=== PATIENT | female | born 1970 | race Caucasian/White ===

== ENCOUNTER 2022-02-16 11:33 | Outpatient (CLI) | payer OTHER, SELFPAY ==
--- NOTE | 2022-02-16 11:54 | XRR_ITS ---
PROCEDURE INFORMATION: Exam: XR Left Tibia and Fibula Exam date and time: 02/16/2022 11:58 AM Age: 52 years old Clinical indication: Pain; Lower leg; Left; Additional info: Pain in left patel TECHNIQUE: Imaging protocol: Radiologic exam of the Left tibia and fibula. Views: 2 views. COMPARISON: No relevant prior studies available. FINDINGS: Bones/joints: There is no evidence for acute fracture or malalignment. Soft tissues: Normal. XR/XR tibia fibula LT 2V [id number] IMPRESSION: No acute findings.
== END 2022-02-16 11:34 | disposition home or self-care (01) ==
LOC: RAD 11:39
PROVIDERS: PCP Family Medicine; Visit Provider Family Medicine
DX: M79.662 Pain in left lower leg (principal)
CPT/HCPCS: 73590

== ENCOUNTER 2022-06-11 09:17 | Emergency (ER) | payer OTHER, SELFPAY ==
[2022-06-11 09:40] VITALS: BP 151/88; PULSE 66; RESP 16; TEMP 36.7; O2SAT 96
--- NOTE | 2022-06-11 10:18 | XRR_ITS ---
PROCEDURE INFORMATION: Exam: XR Left Shoulder Exam date and time: 06/11/2022 10:33 AM Age: 52 years old Clinical indication: Injury or trauma; Blunt trauma (contusions or hematomas); Injury details: Fall, left arm/shoulder pain TECHNIQUE: Imaging protocol: Radiologic exam of the Left shoulder. Views: 2 or more views. COMPARISON: No relevant prior studies available. FINDINGS: Bones/joints: Normal. Soft tissues: Normal. XR/XR shoulder LT min 2V* 00009 IMPRESSION: No acute findings.
[2022-06-11 11:29] VITALS: O2SAT 99
--- NOTE | 2022-06-11 11:41 | W.ED.FALL ---
Documented by User: Suri Baldwin, [employer] 06/11/22 12:11 HPI - Fall General: Chief Complaint: Fall Stated Complaint: fall, left arm/shoulder pain Time Seen by Provider: 06/11/22 09:28 History of Present Illness: Patient reports that she was going down the stairs today and that she missed the last 2 stairs because her knee gave out she reached out to grab the wall with her left arm and ended up spinning around and injuring her left shoulder. Patient reports that she really cannot move at her left shoulder at all. She denies that she fell and hit her head. She denies loss of consciousness. Patient advised that she fell down the stairs at her place of employment while working. Associated symptoms-after fall: Denies abdominal pain, chest pain, headache(s) or lightheadedness Review of Systems Const: Denies: fever(s), chills or body aches Card: Denies: chest pain, palpitations, irregular heart rhythm, lightheadedness or syncope Resp: Denies: dyspnea, productive cough or non-productive cough GI: Denies: abdominal pain, nausea or vomiting : Denies: flank pain, difficulty voiding, dysuria, urinary frequency, urinary urgency or urinary hesitancy Musc: Reports: joint pain (Left shoulder left upper arm) Neuro: Denies: headache(s), numbness in extremities or weakness in extremities Physical Exam Const: COMMON NORMALS: no acute distress, patient oriented x3 and alert GENERAL APPEARANCE: cooperative ORIENTATION/CONSCIOUSNESS: Yes awake, Yes oriented to person, Yes oriented to place and Yes oriented to time Neck/C-Spine: COMMON NORMALS: full ROM Resp: COMMON NORMALS: normal respiratory effort, No retractions, No use of accessory muscles and clear to auscultation bilaterally EFFORT & INSPECTION: Yes symmetric chest movement AUSCULTATION: clear to auscultation bilaterally Cardio: COMMON NORMALS: regular rate, regular rhythm, S1 normal heart sound present and S2 normal heart sound present RATE: regular rate RHYTHM: regular rhythm HEART SOUNDS: S1 normal heart sound present and S2 normal heart sound present Extremity: OTHER: Tenderness to palpation left shoulder anterior and lateral with tenderness extending along the biceps muscle. No obvious bony or soft tissue deformity is appreciated. CSM to distal hand is within normal limits. Patient is guarding the arm and not doing any lateral or frontal abduction passive or active. Neuro: COMMON NORMALS: patient oriented x3 SENSORIUM/ORIENTATION: Yes alert, Yes oriented to person, Yes oriented to place and Yes oriented to time Psych: COMMON NORMALS: cooperative Course Vital Signs: Vital signs: Vital Signs Temperature 98.0 F 06/11/22 09:40 Pulse Rate 87 06/11/22 12:22 Respiratory Rate 20 H 06/11/22 12:22 Blood Pressure 167/90 06/11/22 12:22 Pulse Oximetry 98 06/11/22 12:22 Oxygen Delivery Me thod 06/11/22 09:40 MDM - Fall Medical Decision Making Differentials include fracture of shoulder, internal derangement Given the limitation of mobility both passive and active, the mechanism of injury, the reported pain I have higher suspicion for internal derangement likely rotator cuff injury. X-ray of the shoulder showed no acute findings. 1 dose of pain medication and Toradol provided in ER today. Educated patient about conservative treatment at home including ice, rest, NSAIDs taken with food. Refer patient to orthopedics for further evaluation. Follow-up with primary care provider. Return to ER for new or worsening symptoms. Lab Data Radiology Impressions Shoulder X-Ray 06/11/22 10:18 IMPRESSION: No acute findings. Discharge Plan Discharge Patient Disposition: Home Clinical Impression: Injury of shoulder, left, Work related injury Condition: Stable Prescriptions: No Action albuterol sulfate [Ventolin HFA] 90 mcg/actuation HFA aerosol inhaler 2 puff inhalation Q6H PRN (Reason: shortness of breath or wheezing) Qty: 8.5 0RF biotin 2,500 mcg Capsule 2,500 mcg PO DAILY Discharge Orders: Discharge ED (Routine); Ordered 06/11/22 Ordered By: Suri Baldwin Referrals: Albina Dale MD [Primary Care Provider] - Discharge Diet: Usual diet Discharge Activity: Limit activity as instructed Patient Instructions: Rotator Cuff Injury (ED), Shoulder Sprain (ED) Activity Restrictions/Additional Instructions: Ice, rest, elevate the extremity. You may use the sling for the next 2 days for comfort but I do not want you wearing the sling all the time. You may use ibuprofen, taken with food, every 8 hours as needed for pain and swelling. Follow-up with orthopedics. Follow-up with your primary care provider as needed. Return to the ER for new or worsening symptoms. Stand Alone Forms: Work/School Release Coding Level of Care Code ED Press Set Up Person for [employer] Fwd Documented by User: Baron Rockwell DO 06/16/22 07:35 HPI - Fall General: Chief Complaint: Fall Stated Complaint: fall, left arm/shoulder pain Time Seen by Provider: 06/11/22 09:28 Course Vital Signs: Vital signs: Vital Signs Temperature 98.0 F 06/11/22 09:40 Pulse Rate 87 06/11/22 12:22 Respiratory Rate 20 H 06/11/22 12:22 Blood Pressure 167/90 06/11/22 12:22 Pulse Oximetry 98 06/11/22 12:22 Oxygen Delivery Me thod 06/11/22 09:40 MDM - Fall Medical Decision Making Differentials include fracture of shoulder, internal derangement Given the limitation of mobility both passive and active, the mechanism of injury, the reported pain I have higher suspicion for internal derangement likely rotator cuff injury. X-ray of the shoulder showed no acute findings. 1 dose of pain medication and Toradol provided in ER today. Educated patient about conservative treatment at home including ice, rest, NSAIDs taken with food. Refer patient to orthopedics for further evaluation. Follow-up with primary care provider. Return to ER for new or worsening symptoms. Chart reviewed and patient discussed with midlevel. Agree with assessment and plan. Lab Data Radiology Impressions Shoulder X-Ray 06/11/22 10:18 IMPRESSION: No acute findings. Discharge Plan Discharge Patient Disposition: Home Clinical Impression: Injury of shoulder, left, Work related injury Condition: Stable Prescriptions: No Action albuterol sulfate [Ventolin HFA] 90 mcg/actuation HFA aerosol inhaler 2 puff inhalation Q6H PRN (Reason: shortness of breath or wheezing) Qty: 8.5 0RF biotin 2,500 mcg Capsule 2,500 mcg PO DAILY Discharge Orders: Discharge ED (Routine); Ordered 06/11/22 Ordered By: Suri Baldwin Referrals: Albina Dale MD [Primary Care Provider] - Discharge Diet: Usual diet Discharge Activity: Limit activity as instructed Patient Instructions: Rotator Cuff Injury (ED), Shoulder Sprain (ED) Activity Restrictions/Additional Instructions: Ice, rest, elevate the extremity. You may use the sling for the next 2 days for comfort but I do not want you wearing the sling all the time. You may use ibuprofen, taken with food, every 8 hours as needed for pain and swelling. Follow-up with orthopedics. Follow-up with your primary care provider as needed. Return to the ER for new or worsening symptoms. Stand Alone Forms: Work/School Release Coding Level of Care Code ED Press Set Up Person for [place] Butterfield
[2022-06-11] MEDS: HYDROcodone-acetaminophen 5-325 mg Tablet 1 TAB PO (12:16)
[2022-06-11] MEDS: ketorolac 60 mg/2 mL INJ IM (12:16)
[2022-06-11 12:22] VITALS: BP 167/90; PULSE 87; RESP 20; O2SAT 98
--- NOTE | 2022-06-11 14:27 | DCPLANNER ---
Addendum entered by Yareli Leo 07/14/22 08:03: Patient had a follow up appointment scheduled with ortho - patient did attend appointment Addendum entered by Yareli Leo 07/10/22 08:44: Patient had an appointment scheduled with ortho - patient did attend appointment. Addendum entered by Yareli Leo 06/17/22 14:04: Patient has a follow up appointment scheduled for June at 3:00 with Livan Hopper at ortho. Clinic will call patient with appointment information. Original Note: [facility] had message to schedule a follow up appointment for patient with ortho. esthetician [employer] [facility] sent patients information to the front office staff at ortho. Patients information will be printed and reviewed. Clinic will call patient with appointment information.
== END 2022-06-11 12:41 | disposition home or self-care (01) ==
PROVIDERS: Emergency Provider Nurse Practitioner Family; PCP Family Medicine
DX: S49.92XA Unspecified injury of left shoulder and upper arm, initial encounter (principal); X50.1XXA Overexertion from prolonged static or awkward postures, initial encounter; Y99.0 Civilian activity done for income or pay
CPT/HCPCS: 73030; 96372; 99284; J1885

== ENCOUNTER → 2022-06-18 15:50 | Outpatient (BNVA) | payer OTHER, SELFPAY | PROVIDERS: PCP Family Medicine; Referring Provider Nurse Practitioner Family; Visit Provider Physician Assistant | DX: S49.92XA Unspecified injury of left shoulder and upper arm, initial encounter (principal); Y99.0 Civilian activity done for income or pay | CPT/HCPCS: 73030 ==

== ENCOUNTER 2022-07-21 06:51 | Outpatient (CLI) | payer OTHER, SELFPAY ==
--- NOTE | 2022-07-21 07:15 | MR_ITS ---
WS: [id number] EXAMINATION: MR shoulder LT wo con* [id number] ORDER DATE: 07/21/2022 7:15 AM COMPARISON: None. HISTORY: pain CONTRAST: None. TECHNIQUE: Axial T2 STAR, coronal proton density fat sat, sagittal T2 fat sat, sagittal proton densit y fat sat, axial proton density fat sat, coronal T2 fat sat, and coronal T1 performed. After contrast , axial T1 fat sat, coronal T1 fat sat, and sagittal T1 fat sat were performed. FINDINGS: Moderate degenerative arthritis at the AC joint with mild edema. Mild downsloping of the acromium wit h slight subacromial spurring. Subacromial/subdeltoid effusion. Diffuse increased signal abnormality with partial intrasubstance tears involving the distal supraspinatus and infraspinatus with tendinopa thy. No tendon retraction. Chronic thinning of the distal supraspinatus. Normal teres minor. Chronic thinning of the subscapularis tendon. Subscapularis appears intact. Tiny biceps remnant distally in the bicipital groove. Biceps tendon is not visualized in the proximal bici pital groove likely torn. Intra-articular biceps tendon appears intact. Small joint effusion. Degenerative fraying of the glenoid labrum. Chronic Hill-Sachs deformity. Cystic degenerative changes involving the greater tuberosity. Small joint effusion. MR/MR shoulder LT wo con* [id number] IMPRESSION: 1. Moderate degenerative arthritis AC joint with slight impingement distal sup raspinatus. Small amount of subacromial/subdeltoid fluid. 2. Diffuse increased signal abnormality with partial thickness intrasubstance tears and tendinopathy involving the supraspinatus and infraspinatus distally. Chronic thinning of the supraspinatus. 3. Biceps tendon is not visualized in the bicipital groove proximally likely t orn. Distal biceps remnant visualized. 4. Chronic Hill-Sachs deformity. Normal bone marrow signal in the glenoid. Deg enerative fraying glenoid labrum. 5. Intra-articular biceps tendon appears intact. 6. Small joint effusion.
--- NOTE | 2022-07-21 08:00 | MR_ITS ---
WS: [id number] MRI OF THE LEFT HUMERUS WITHOUT GADOLINIUM ENHANCEMENT INDICATION: LEFT shoulder pain fall TECHNIQUE: Axial CT, axial PD, coronal STIR, coronal T1, sagittal STIR, sagittal T1 imaging FINDINGS: Hill-Sachs deformity involving the posterior lateral humeral head. Small amount of edema in this location. Cystic degenerative changes at the greater tuberosity. Small joint effusion. Small am ount of edema in the humeral head and neck likely degenerative. No visualized humeral fractures. Humeral shaft is normal in appearance. Normal subscapularis. Tiny bi ceps tendon in the bicipital groove better visualized on this study. Degenerative fraying of the glenoid labrum. Distal humeral condyles and elbow are not included on thi s study IMPRESSION: 1. No visualized acute humeral shaft fractures. 2. Small amount of edema in the humeral head and neck likely degenerative. 3. Chronic appearing Hill-Sachs deformity. Bony glenoid appears normal. 4. Tiny biceps tendon in the bicipital groove better visualized than on the shoulder study.
== END 2022-07-21 06:52 | disposition home or self-care (01) ==
LOC: RAD 06:52
PROVIDERS: PCP Family Medicine; Visit Provider Physician Assistant
DX: M25.522 Pain in left elbow (principal); R60.0 Localized edema; M19.012 Primary osteoarthritis, left shoulder; M25.412 Effusion, left shoulder
CPT/HCPCS: 73218; 73221

== ENCOUNTER 2022-09-14 08:59 | Outpatient (RCR) | payer OTHER, SELFPAY | END 2022-09-30 23:59 | disposition home or self-care (01) | LOC: SPT 08:59 | PROVIDERS: PCP Family Medicine; Visit Provider Orthopaedic Surgery | DX: S43.005D Unspecified dislocation of left shoulder joint, subsequent encounter (principal); X58.XXXD Exposure to other specified factors, subsequent encounter | CPT/HCPCS: 97110; 97162 ==

== ENCOUNTER 2022-10-01 06:00 | Outpatient (RCR) | payer OTHER, SELFPAY | END 2022-10-30 23:59 | disposition home or self-care (01) | LOC: SPT 06:00 | PROVIDERS: PCP Family Medicine; Visit Provider Orthopaedic Surgery | DX: S43.005D Unspecified dislocation of left shoulder joint, subsequent encounter (principal); X58.XXXD Exposure to other specified factors, subsequent encounter | CPT/HCPCS: 97110 ==

== ENCOUNTER 2022-10-31 06:00 | Outpatient (RCR) | payer OTHER, SELFPAY | END 2022-11-19 23:59 | disposition home or self-care (01) | LOC: SPT 06:00 | PROVIDERS: PCP Family Medicine; Visit Provider Orthopaedic Surgery | DX: S43.005D Unspecified dislocation of left shoulder joint, subsequent encounter (principal); X58.XXXD Exposure to other specified factors, subsequent encounter | CPT/HCPCS: 97110 ==

== ENCOUNTER → 2023-11-05 18:12 | Outpatient (BNVA) | payer OTHER, SELFPAY | PROVIDERS: PCP Family Medicine; Visit Provider Emergency Medicine | DX: M79.641 Pain in right hand (principal) | CPT/HCPCS: 73130 ==

== ENCOUNTER 2024-11-10 07:57 | Outpatient (CLI) | payer OTHER, SELFPAY ==
--- NOTE | 2024-11-10 08:04 | XRR_ITS ---
PROCEDURE INFORMATION: Exam: XR Right Hip Exam date and time: 11/10/2024 8:20 AM Age: 54 years old Clinical indication: Hip pain; Right hip; Pain in RT hip that radiates down the front of femur x few months. ; Additional info: Right leg pain. No history of recent trauma or surgery is provided. TECHNIQUE: Imaging protocol: Radiologic exam of the right hip. 2image(s) are provided. Views: 1 view hip with pelvis when performed. COMPARISON: CR XR lumbar spine min 4V [id number] 11/10/2024 8:20 AM. No previous hip radiograph is currently available. FINDINGS: Bones/joints: Osseous alignment is maintained. No displaced fracture or dislocation is appreciated. There is some mild degenerative appearance of the pubic symphysis. There are some degenerative appearing changes of the hip overall present including some acetabular rim and subcapital spurring. This appears more pronounced of the right as compared to the left including of the lumbar portion of the study. Consider also if there is history of previous injury. There is also spurring of the greater trochanter margin. Soft tissues: No radiopaque foreign body or subcutaneous emphysema is appreciated. XR/XR hip RT 2-3V wo/w pel* [id number] IMPRESSION: There are degenerative appearing changes of the hips overall with no displaced fracture or dislocation appreciated. If there is persistent pain or limited range of motion then consider MRI arthrogram.
--- NOTE | 2024-11-10 08:04 | XRR_ITS ---
PROCEDURE INFORMATION: Exam: XR Lumbosacral Spine Exam date and time: 11/10/2024 8:20 AM Age: 54 years old Clinical indication: Lumbago with sciatica; Right; Pain in RT hip that radiates down the front of femur x few months. ; Additional info: Left leg pain. No history of recent trauma or surgery is provided. TECHNIQUE: Imaging protocol: Radiologic exam of the lumbosacral spine. 5image(s) are provided. Views: 4 or 5 views. COMPARISON: CR XR hip RT 2-3V wo/w pel* [id number] 11/10/2024 8:20 AM. No previous lumbar studies are currently available. FINDINGS: Bones/joints: Osseous alignment is overall maintained. No displaced fracture or dislocation is appreciated. There is slight levocurvature versus positioning of the lumbar spine.Symmetric appearance of the sacral arcuate lines and sacroiliac junctions are appreciated. There are degenerative appearing changes of the hips right more so than left corresponding with the hip description. There appear to be mild degenerative changes of the pubic symphysis. There appear to be some mild degenerative changes of the sacroiliac joints. There is some multilevel degeneration present including spurring and disc space narrowing for example with some narrowing of the thoracolumbar junction as well as the lumbosacral junction with the associated posterior element hypertrophy. There are some Schmorl's node, endplate related changes also present. There appears to be questionable interspinous process calcification and possible fusion on the lateral view of the lower thoracic, lumbar junction. Consider if there is history of ankylosis. There appears to be some minimal decreased anterior vertebral height of the T12 level. No gross spondylolysis or spondylolisthesis is currently appreciated. Soft tissues: No radiopaque foreign body or subcutaneous emphysema is appreciated. Gastrointestinal tract: There is some scattered large and small bowel gas with a nonobstructive overall appearance. There appears to be some abundant stool content suggestive of constipation. XR/XR lumbar spine min 4V [id number] IMPRESSION: There are multilevel degenerative changes present overall of the spine. If there is persistent pain or radicular-type symptoms then consider MRI.
--- NOTE | 2024-11-10 10:57 | MM_ITS ---
WS: [id number] BILATERAL 3D TOMOSYNTHESIS DIGITAL SCREENING MAMMOGRAPHY WITH CAD CLINICAL INFORMATION: SCREEN HISTORY: Screening mammogram. No current complaints. COMPARISON: 2016 TECHNIQUE: Bilateral CC and MLO views. FINDINGS: Scattered fibroglandular densities bilaterally. No suspicious focal mass, asymmetry, calcifications, or architectural distortion. No evidence of malignancy. Stable 4 mm small ovoid nodule or intramammary lymph node in the inner LEFT breast MM/MM scr BI tomosynthesis [id number] IMPRESSION: DENSITY: There are scattered areas of fibroglandular density. BI-RADS: 2 - Benign. FOLLOW UP: 1 Year Follow-up Recommend return to annual screening mammography.
== END 2024-11-10 07:58 | disposition home or self-care (01) ==
LOC: RAD 07:58
PROVIDERS: PCP Nurse Practitioner Family; Visit Provider Nurse Practitioner Family
DX: Z12.31 Encounter for screening mammogram for malignant neoplasm of breast (principal); M51.362 Other intervertebral disc degeneration, lumbar region with discogenic back pain and lower extremity pain; M16.0 Bilateral primary osteoarthritis of hip
CPT/HCPCS: 72110; 73502; 77063; 77067

== ENCOUNTER 2024-12-05 06:50 | Outpatient (CLI) | payer OTHER, SELFPAY ==
--- NOTE | 2024-12-05 06:56 | MR_ITS ---
WS: [id number] MRI LUMBAR SPINE NONCONTRAST TECHNIQUE: Sagittal T1, T2 and STIR imaging. Axial T1 and T2 imaging. CLINICAL INFORMATION: PAIN IN RIGHT LEG COMPARISON: None. FINDINGS: Chronic anterior wedging at T12 and L1. Small disc protrusions at T11-T12 and T12-L1. Slight contact of the thoracic cord at T11-T12. L1-L2: Mild disc bulging. Spinal canal and foramen are patent. Mild facet arthropathy. L2-L3: Mild disc bulging. Mild central canal stenosis. Narrowing of the subarticular recess. Mild LEFT foraminal narrowing. Moderate facet arthropathy. L3-L4: Mild annular bulging. Narrowing of the subarticular recess bilaterally. Moderate facet arthropathy. Small RIGHT foraminal protrusion with mild RIGHT foraminal narrowing. L4-L5: Mild annular bulging with a small central protrusion and annular tear. Impingement of traversing RIGHT L5 nerve root. Moderate RIGHT foraminal narrowing. Moderate facet arthropathy. L5-S1: Mild annular bulging. Moderate facet arthropathy. Spinal canal and foramen are patent. Visualized pelvic bony structures: Normal. Paravertebral soft tissues: Normal. Small bilateral renal cysts. MR/MR lumbar spine wo con* [id number] IMPRESSION: 1. Lumbar scoliosis. Chronic anterior wedging at T12 and L1. 2. Small central protrusion at T11-T12 with mild central canal stenosis. 3. Mild central canal stenosis L2-3 L3-4 and L4-5. 4. Disc bulging L3-4 impinges the RIGHT subarticular recess. Mild RIGHT forami nal narrowing with a small RIGHT foraminal protrusion. 5. RIGHT paracentral protrusion L4-5 with an annular tear impinges the hailey ing RIGHT greater than LEFT L5 nerve roots. Moderate RIGHT foraminal narrowing at this level with a RIGHT foraminal protrusion. 6. Moderate facet arthropathy L3-L5.
== END 2024-12-05 06:51 | disposition home or self-care (01) ==
LOC: RAD 06:50
PROVIDERS: PCP Nurse Practitioner Family; Visit Provider Nurse Practitioner Family
DX: M47.26 Other spondylosis with radiculopathy, lumbar region (principal); M41.9 Scoliosis, unspecified; M48.04 Spinal stenosis, thoracic region; M48.061 Spinal stenosis, lumbar region without neurogenic claudication; M51.361 Other intervertebral disc degeneration, lumbar region with lower extremity pain only
CPT/HCPCS: 72148

== ENCOUNTER 2025-02-12 07:16 | Outpatient (RCR) | payer OTHER, SELFPAY | END 2025-03-02 23:59 | disposition home or self-care (01) | LOC: SPT 07:16 | PROVIDERS: Visit Provider Orthopaedic Surgery | DX: M48.061 Spinal stenosis, lumbar region without neurogenic claudication (principal) | CPT/HCPCS: 97110; 97161 ==

== ENCOUNTER 2025-03-03 05:00 | Outpatient (RCR) | payer OTHER, SELFPAY | END 2025-04-01 23:59 | disposition home or self-care (01) | LOC: SPT 05:00 | PROVIDERS: Visit Provider Orthopaedic Surgery | DX: M48.061 Spinal stenosis, lumbar region without neurogenic claudication (principal) | CPT/HCPCS: 97110 ==

== ENCOUNTER 2025-04-02 05:00 | Outpatient (RCR) | payer OTHER, SELFPAY | END 2025-04-04 13:16 | disposition home or self-care (01) | LOC: SPT 05:00 | PROVIDERS: Visit Provider Orthopaedic Surgery | DX: M48.061 Spinal stenosis, lumbar region without neurogenic claudication (principal) | CPT/HCPCS: 97110 ==